=== PATIENT | female | born 1990 | race Caucasian/White ===

== ENCOUNTER 2017-12-11 14:59 | Emergency (ER) | payer OTHER ==
[~2017-12-11] VITALS: Ht 157.5 cm; Wt 85.0 kg
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
[2017-12-11 16:30] VITALS: BP 136/96; PULSE 108; RESP 16; TEMP 98.4; O2SAT 99
[2017-12-11 16:37] LABS: AUTOMATED NEUTROPHIL # 4.9 TH/MM3 (1.8-7.7); BASOPHIL # 0.1 TH/MM3 (0-0.2); BASOPHIL % 0.9 % (0.0-2.0); EOSINOPHIL # 0.2 TH/MM3 (0-0.4); EOSINOPHIL % 2.2 % (0.0-4.0); HEMATOCRIT 46.6 % (35.0-46.0); HEMOGLOBIN 15.8 GM/DL (11.6-15.3); LYMPH % 30.2 % (9.0-44.0); LYMPHOCYTE # 2.5 TH/MM3 (1.0-4.8); MEAN CORPUSCULAR HEMOGLOBIN 29.6 PG (27.0-34.0); MEAN PLATELET VOLUME 7.5 FL (7.0-11.0); MONO % 7.5 % (0.0-8.0); MONOCYTE # 0.6 TH/MM3 (0-0.9); NEUT % 59.2 % (16.0-70.0); PLATELET COUNT 372 TH/MM3 (150-450); RED BLOOD COUNT 5.36 MIL/MM3 (4.00-5.30); WHITE BLOOD COUNT 8.3 TH/MM3 (4.0-11.0)
[2017-12-11 17:04] LABS: AST (GOT) 24 U/L (15-37); BICARBONATE 25.8 MEQ/L (21.0-32.0); BLOOD UREA NITROGEN 9 MG/DL (7-18); CALCIUM 8.2 MG/DL (8.5-10.1); CHLORIDE 105 MEQ/L (98-107); CREATININE 0.88 MG/DL (0.50-1.00); GLOMERULAR FILTRATION RATE 77 ML/MIN (>89); GLUCOSE,RANDOM 80 MG/DL (74-106); SODIUM (NA) 138 MEQ/L (136-145)
[2017-12-11 17:05] LABS: ALT (GPT) 34 U/L (10-53)
[2017-12-11 17:15] LABS: ALKALINE PHOSPHATASE 74 U/L (45-117); TOTAL BILIRUBIN ADULT 0.5 MG/DL (0.2-1.0)
[2017-12-11 20:21] VITALS: BP 137/86; PULSE 85; RESP 16; TEMP 98.6; O2SAT 97
[2017-12-11 23:01] VITALS: BP 120/73; PULSE 74; RESP 18; TEMP 98.5; O2SAT 100
== END 2017-12-11 23:11 ==
LOC: NEDAMB 14:59 → NEPJ 23:11
DX: Z04.6 Encounter for general psychiatric examination, requested by authority (principal); R45.851 Suicidal ideations; F32.9 Major depressive disorder, single episode, unspecified; F17.210 Nicotine dependence, cigarettes, uncomplicated; F12.90 Cannabis use, unspecified, uncomplicated
CPT/HCPCS: 80053; 80307; 84443; 85025; 99284